=== PATIENT | male | born 1965 | race Caucasian/White ===

== ENCOUNTER → 2020-04-12 | Outpatient (CLI) | payer SELFPAY ==
[2020-04-12 09:43] LABS: ABSOLUTE LYMPHOCYTES (AUTO) 1.3 10^3/uL (0.5-4.7); ABSOLUTE MONOCYTES (AUTO) 0.8 10^3/uL (0.1-1.4); ABSOLUTE NEUT (AUTO) 2.6 10^3/uL (1.7-8.2); BASOPHILS % (AUTO) 0.4 % (0-2); EOSINOPHILS % (AUTO) 0.7 % (0-6); HEMATOCRIT 38.2 % (37.9-51.0); HEMOGLOBIN 12.9 g/dL (13.5-17.0); LYMPHOCYTES % (AUTO) 27.7 % (13-45); MEAN CORPUSCULAR HEMOGLOBIN 32.5 pg (27.0-33.4); MEAN CORPUSCULAR HGB CONC 33.9 g/dL (32.0-36.0); MEAN CORPUSCULAR VOLUME 96 fl (80-97); MONOCYTES % (AUTO) 16.4 % (3-13); PLATELET COUNT 164 10^3/uL (150-450); RED BLOOD COUNT 3.99 10^6/uL (4.35-5.55); RED CELL DISTRIBUTION WIDTH 14.3 % (11.5-14.0); SEGMENTED NEUTROPHILS % (AUTO) 54.8 % (42-78); TOTAL CELLS COUNTED % (AUTO) 100 %; WHITE BLOOD COUNT 4.8 10^3/uL (4.0-10.5)
[2020-04-12 10:12] LABS: ALBUMIN 3.8 g/dL (3.5-5.0); ANION GAP 9 (5-19); BLOOD UREA NITROGEN 46 mg/dL (7-20); CARBON DIOXIDE 20 mmol/L (22-30); CHLORIDE 112 mmol/L (98-107); GLUCOSE 99 mg/dL (75-110); PHOSPHORUS 3.5 mg/dL (2.5-4.5); POTASSIUM 5.4 mmol/L (3.6-5.0)
[2020-04-12 11:34] LABS: APPEARANCE,URINE CLEAR; BILIRUBIN,URINE NEGATIVE (NEGATIVE); COLOR,URINE YELLOW; GLUCOSE, URINE NEGATIVE (NEGATIVE); KETONES,URINE NEGATIVE (NEGATIVE); LEUKOCYTE ESTERASE,URINE NEGATIVE (NEGATIVE); NITRITE,URINE NEGATIVE (NEGATIVE); PROTEIN,URINE NEGATIVE (NEGATIVE); URINE SPECIFIC GRAVITY 1.015; UROBILINOGEN,URINE NEGATIVE mg/dL (<2.0)
[2020-04-13 14:37] LABS: MICROALBUMIN URINE <3.0 ug/mL (Not Estab.)
== END ==
LOC: OD 09:12
PROVIDERS: ATTEND Internal Medicine Nephrology
DX: I12.9 Hypertensive chronic kidney disease with stage 1 through stage 4 chronic kidney disease, or unspecified chronic kidney disease (principal); N18.30 Chronic kidney disease, stage 3 unspecified; N25.81 Secondary hyperparathyroidism of renal origin
CPT/HCPCS: 36415; 80069; 81001; 82043; 82306; 82570; 83970; 85025